=== PATIENT | female | born 1990 | race African-American/Black ===

== ENCOUNTER 2019-11-07 07:24 | Emergency (ER) | payer OTHER ==
[~2019-11-07] VITALS: Ht 172.7 cm; Wt 140.6 kg
[2019-11-07 08:00] LABS: URINE BLOOD NEGATIVE (Negative); URINE CLARITY CLEAR; URINE COLOR YELLOW; URINE GLUCOSE-RANDOM NEGATIVE (Negative); URINE KETONES NEGATIVE (Negative); URINE LEUKOCYTES-REFLEX NEGATIVE (Negative); URINE NITRITE-REFLEX NEGATIVE (Negative); URINE PROTEIN 1+ (Negative); URINE SPECIFIC GRAVITY 1.025 (1.005-1.030)
[2019-11-07 08:01] LABS: URINE BILIRUBIN 1+ (Negative)
[2019-11-07 08:06] LABS: ICTOTEST (BILI CONFIRMATORY) Negative (Negative)
[2019-11-07 08:07] LABS: ABSOLUTE BASOPHILS 0.1 thou/uL (0.0-0.2); ABSOLUTE EOSINOPHILS 0.2 thou/uL (0.0-0.7); ABSOLUTE LYMPHOCYTES 2.5 thou/uL (0.8-5.3); ABSOLUTE MONOCYTES 0.5 thou/uL (0.0-1.2); ABSOLUTE NEUTROPHILS 7.6 thou/uL (1.6-8.1); BASOPHILS 0.6 %; EOSINOPHILS 1.4 %; HEMATOCRIT 29.8 % (37.0-47.0); HEMOGLOBIN 10.1 gm/dL (12.0-15.0); LYMPHOCYTES 22.8 %; MCH 23.3 pg (26.0-34.0); MCV 68.5 fL (80.0-100.0); MONOCYTES 4.4 %; MPV 6.5 fl. (7.2-11.1); NUCLEATED RBCS 0 /100WBC; PLATELET COUNT* 388 thou/uL (150-400); POLYS 70.8 %; RBC 4.35 mil/uL (4.20-5.00); WBC 10.8 thou/uL (4.0-11.0)
[2019-11-07 08:13] LABS: CALCIUM 8.9 mg/dL (8.5-10.1); CREATININE 1.1 mg/dL (0.6-1.3); POTASSIUM 3.2 mmol/L (3.5-5.1)
[2019-11-07 08:17] LABS: ALBUMIN 3.5 g/dL (3.4-5.0); TOTAL BILIRUBIN 0.2 mg/dL (<0.1-1.0)
[2019-11-07 08:21] LABS: AMP/METHAMP Negative (Negative); BARBITURATES Negative (Negative); BENZODIAZEPINES Negative (Negative); COCAINE Negative (Negative); METHADONE Negative (Negative); OPIATES Negative (Negative); PCP Negative (Negative); THC POSITIVE (Negative)
[2019-11-07 08:35] LABS: ALCOHOL < 10 mg/dL (<10); SALICYLATE 4.5 mg/dL (2.8-20.0)
[2019-11-07 08:36] LABS: ACETAMINOPHEN < 2 ug/mL (10-30)
[2019-11-07 08:44] LABS: ANISOCYTOSIS 1+; MICROCYTES 1+; TARGET CELLS 2+
[2019-11-07 18:51] VITALS: BP 141/77
== END 2019-11-07 18:48 ==
LOC: M.ERS 07:24
PROVIDERS: Emergency Medicine
DX: F29 Unspecified psychosis not due to a substance or known physiological condition (principal); J45.909 Unspecified asthma, uncomplicated; I10 Essential (primary) hypertension; F41.9 Anxiety disorder, unspecified; F32.9 Major depressive disorder, single episode, unspecified